=== PATIENT | female | born 1995 | race Caucasian/White ===

== ENCOUNTER 2018-09-05 20:51 | Emergency (ER) | payer BC, MEDICAID ==
--- NOTE | 2018-09-05 21:03 | ED Physician Documentation ---
PD HPI LOWER EXT INJURY - Stated complaint Stated Complaint: LT KNEE PX - Chief complaint Chief Complaint: Trauma Ext - History obtained from History obtained from: Patient - History of Present Illness PD HPI LOW EXT INJURY LOCATION: Left, Knee Type of injury: Other (standing up from a flexed postion) Where injury occurred: Home Timing - onset: Today Timing - duration: Minutes Timing - details: Abrupt onset, Now resolved Pain level max: 10 Pain level now: 7 Improved by: Rest, Immobilization Worsened by: Moving, Palpating Associated symptoms: No: Weakness, Numbness, Tingling, Swelling Similar symptoms before: Has not had sx before Recently seen: Not recently seen - Additional information Additional information: 22-year-old female is doing some stretches in her home today on the ground she had her knee flexed extensively and she went to go stand up when she did her kneecap subluxed laterally on the left knee she was able to spontaneously reduce this and she has significant pain in the knee itself now and pain with weightbearing. She was able to drive herself here to the hospital. She has not had this happen to her previously. She has had problems with both of her knees she is had operation on the right knee and has some arthritis in the left knee. Review of Systems Constitutional: denies: Fever Eyes: denies: Decreased vision Ears: denies: Ear pain Nose: denies: Congestion Throat: denies: Sore throat Cardiac: denies: Chest pain / pressure Respiratory: denies: Dyspnea, Cough GI: denies: Abdominal Pain, Nausea, Vomiting : denies: Dysuria, Frequency Skin: denies: Rash Musculoskeletal: reports: Extremity pain, Joint pain, Pain with weight bearing. denies: Neck pain, Back pain Neurologic: denies: Generalized weakness, Focal weakness, Numbness PD PAST MEDICAL HISTORY - Present Medications Home Medications: Ambulatory Orders Medication Instructions Recorded Confirmed traMADol [Ultram] 50 - 100 mg PO Q6H PRN #20 tablet 09/05/18 - Allergies Allergies/Adverse Reactions: Allergies Allergy/AdvReac Type Severity Reaction Status Date / Time acetaminophen [From Lee] Allergy Hives Verified 09/05/18 20:58 amoxicillin [From Augmentin] Allergy Hives Verified 09/05/18 20:58 clavulanic acid Allergy Hives Verified 09/05/18 20:58 [From Augmentin] doxycycline Allergy Hives Verified 09/05/18 20:58 hydrocodone [From Lee] Allergy Hives Verified 09/05/18 20:58 metoclopramide [From Reglan] Allergy Anxiety Verified 09/05/18 20:58 morphine Allergy Hives Verified 09/05/18 20:58 sulfamethoxazole Allergy Hives Verified 09/05/18 20:58 [From Bactrim] trimethoprim [From Bactrim] Allergy Hives Verified 09/05/18 20:58 PD ED PE NORMAL - Vitals Vital signs reviewed: Yes (tachy and hypertensive ) - General General: Alert and oriented X 3, Well developed/nourished, Other (appears mildly anxious and in pain ) - HEENT HEENT: Atraumatic, PERRL, EOMI - Respiratory Respiratory: No respiratory distress - Derm Derm: Normal color, Warm and dry, No rash - Extremities Extremities: No deformity, No edema, Other (There is point tendernss over the left patella especially inferiorly and there does not appear to be an effusion. The ligaments are stable to testing and the distal n/v is intact. 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 Reduction of the patella. Normal alignment. Degenerative changes of the medial compartment.), EMP read indepedently, See rad report PD MEDICAL DECISION MAKING - ED course Complexity details: reviewed results, re-evaluated patient, considered differential, d/w patient ED course: 22-year-old female with a patellar subluxation that has been reduced has persistence of pain she is placed into a knee immobilizer and will have follow- up with orthopedics. Departure - Departure Disposition: 01 Home, Self Care Clinical Impression: Closed dislocation of left patella Qualifiers: Encounter type: initial encounter Qualified Code(s): S83.005A - Unspecified dislocation of left patella, initial encounter Condition: Stable Instructions: ED Dislocation Patella Follow-Up: [facility] [Provider Group] Prescriptions: traMADol [Ultram] 50 - 100 mg PO Q6H PRN #20 tablet PRN Reason: Pain
--- NOTE | 2018-09-05 22:07 | XRAY Report ---
Reason: patellar dislocation Procedure Date: 09/05/2018 Accession Number: [id number] / [id number] Procedure: XR - Knee 4 View LT CPT Code: FULL RESULT: EXAM: LEFT KNEE RADIOGRAPHY EXAM DATE: 09/05/2018 09:43 PM. CLINICAL HISTORY: Patellar dislocation. COMPARISON: None. TECHNIQUE: 3 views. FINDINGS: Bones: Normal. No fractures or bone lesions. Joints: There are small marginal osteophytes involving the medial compartment. The patella is reduced to a normal location. Soft Tissues: Normal. No soft tissue swelling. IMPRESSION: 1. Reduction of the patella. Normal alignment. Degenerative changes of the medial compartment. [facility]
[2018-09-05] MEDS ORDERED: ACETAMINOPHEN 500 MG TABLET PO STA (22:36)
[2018-09-05 22:57] VITALS: BP 135/82
== END 2018-09-05 22:59 | disposition home or self-care (01) ==
LOC: ED 20:51
DX: S83.005A Unspecified dislocation of left patella, initial encounter (principal); X50.1XXA Overexertion from prolonged static or awkward postures, initial encounter; Y92.009 Unspecified place in unspecified non-institutional (private) residence as the place of occurrence of the external cause
CPT/HCPCS: 73564; 99283; A9270